=== PATIENT | female | born 1970 | race Caucasian/White ===

== ENCOUNTER 2016-11-28 16:40 | Inpatient (IN) | payer SELFPAY ==
[~2016-11-28] VITALS: Ht 162.6 cm; Wt 72.3 kg
[2016-11-28] MEDS ORDERED: DIPHTH,PERTUSS(ACELL),TET TOX 0.5 ML DISP.SYRIN. VAX IM ONE (18:00)
[2016-11-28] MEDS ORDERED: ACETAMINOPHEN 500 MG TABLET PO ONE (18:00)
[2016-11-28] MEDS ORDERED: IV NORMAL SALINE 1000ML BAG 1,000 ML IV ONE (18:00)
[2016-11-28] MEDS ORDERED: ONDANSETRON PF 4 MG/2 ML VIAL. IV ONE (18:00)
--- NOTE | 2016-11-28 18:04 | PHYS DOC ---
Past Medical History Past Medical History: Depression, Other Additional Past Medical Histor: chronic back pain and neck pain Past Surgical History: Hysterectomy, Other Additional Past Surgical Histo: breast augmentaion, d&c Additional Information: smoke pot used the past 2 days Alcohol Use: Occasionally Drug Use: Marijuana, Other Social History Narrative: pt states she has taken some friends adderrall, and ativan Adult General Chief Complaint Chief Complaint: SYNCOPE HPI HPI 46-year-old female presents with a syncopal episode that she states occurred while she was bending over to tie her shoes. She states in the evening last night she had some nausea and vomiting and has had little to eat or drink today. She admits that she took an Ativan and Adderall today that she is not normally prescribed for her symptoms. She also states she has history of marijuana use but denies any marijuana use today. She denies any significant shortness breath or chest pain. She denies any abdominal pain. She complains of a moderate headache and does have a small laceration to her forehead and is unsure if she lost consciousness with her fall. Review of Systems Review of Systems Constitutional: Denies fever or chills [] Eyes: Denies change in visual acuity, redness, or eye pain [] HENT: Denies nasal congestion or sore throat [] Respiratory: Denies cough or shortness of breath [] Cardiovascular: No additional information not addressed in HPI [] GI: Denies abdominal pain, has nausea, has vomiting, denies bloody stools or diarrhea [] : Denies dysuria or hematuria [] Musculoskeletal: Denies back pain or joint pain [] Integument: Denies rash or skin lesions [] Neurologic: Has headache, denies focal weakness or sensory changes [] Endocrine: Denies polyuria or polydipsia [] Current Medications Current Medications Current Medications Medications (Trade) Dose Ordered Sig/[facility] Start Time Stop Time Status Last Admin Dose Admin Acetaminophen (Tylenol) 1,000 mg 1X ONCE 11/28/16 18:00 11/28/16 18:01 DC 11/28/16 18:00 1,000 MG Diphtheria/ Tetanus/Acell Pertussis (Boostrix) 0.5 ml ONCE ONCE 11/28/16 18:00 11/28/16 18:01 DC 11/28/16 18:03 0.5 ML Ondansetron HCl (Zofran) 4 mg 1X ONCE 11/28/16 18:00 11/28/16 18:01 DC 11/28/16 17:59 4 MG Sodium Chloride (Iv Sodium Chloride 0.9% 1000ml Bag) 1,000 ml @ 1,000 mls/hr 1X ONCE 11/28/16 18:00 11/28/16 19:00 DC 11/28/16 17:57 1,000 MLS/HR Allergies Allergies Allergies Coded Allergies Type Severity Reaction Last Updated Verified naproxen Allergy Severe anaphylactic 11/28/16 Yes codeine Allergy Intermediate hives 11/28/16 Yes Physical Exam Physical Exam Constitutional: Well developed, well nourished, no acute distress, non-toxic appearance. [] HENT: Normocephalic, very tiny laceration to the right forehead with mild swelling and hematoma underlying it, bilateral external ears normal, oropharynx moist, no oral exudates, nose normal. [] Eyes: PERRLA, EOMI, conjunctiva normal, no discharge. [] Neck: Normal range of motion, no tenderness, supple, no stridor. [] Cardiovascular:Heart rate regular rhythm, no murmur [] Lungs & Thorax: Bilateral breath sounds clear to auscultation [] Abdomen: Bowel sounds normal, soft, no tenderness, no masses, no pulsatile masses. [] Skin: Warm, dry, no erythema, no rash. [] Back: No tenderness, no CVA tenderness. [] Extremities: No tenderness, no cyanosis, no clubbing, ROM intact, no edema. [] Neurologic: Alert and oriented X 3, normal motor function, normal sensory function, no focal deficits noted. [] Psychologic: Affect normal, judgement normal, mood normal. [] Current Patient Data Vital Signs Vital Signs Date Time Temp Pulse Resp B/P Pulse Ox O2 Delivery O2 Flow Rate FiO2 11/28/16 18:58 66 20 99/55 98 Room Air 11/28/16 16:40 97.8 97.8 Lab Values Laboratory Tests Test 11/28/16 18:06 11/28/16 18:15 11/28/16 18:19 Urine Collection Type Unknown Urine Color Yellow Urine Clarity Hazy Urine pH 6.0 Urine Specific [place] >=1.030 Urine Protein Negativemg/dL (NEG-TRACE) Urine Glucose (UA) Negativemg/dL (NEG) Urine Ketones (Stick) Negativemg/dL (NEG) Urine Blood Negative (NEG) Urine Nitrite Negative (NEG) Urine Bilirubin Small (NEG) Urine Urobilinogen Dipstick 1.0mg/dL (0.2 mg/dL) Urine Leukocyte Esterase Small (NEG) Urine RBC 0/HPF (0-2) Urine WBC 5-10/HPF (0-4) Urine Squamous Epithelial Cells Mod/LPF Urine Bacteria Few/HPF (0-FEW) Urine Mucus Marked/LPF Urine Opiates Screen Neg (NEG) Urine Methadone Screen Neg (NEG) Urine Barbiturates Neg (NEG) Urine Phencyclidine Screen Neg (NEG) Urine Amphetamine/Methamphetamine Pos (NEG) Urine Benzodiazepines Screen Neg (NEG) Urine Cocaine Screen Neg (NEG) Urine Cannabinoids Screen Pos (NEG) Urine Ethyl Alcohol Neg (NEG) White Blood Count 7.8x10^3/uL (4.0-11.0) Red Blood Count 4.30x10^6/uL (3.50-5.40) Hemoglobin 13.3g/dL (12.0-15.5) Hematocrit 40.0% (36.0-47.0) Mean Corpuscular Volume 93fL (79-100) Mean Corpuscular Hemoglobin 31pg (25-35) Mean Corpuscular Hemoglobin Concent 33g/dL (31-37) Red Cell Distribution Width 12.7% (11.5-14.5) Platelet Count 283x10^3/uL (140-400) Neutrophils (%) (Auto) 79% (31-73) H Lymphocytes (%) (Auto) 10% (24-48) L Monocytes (%) (Auto) 9% (0-9) Eosinophils (%) (Auto) 2% (0-3) Basophils (%) (Auto) 0% (0-3) Neutrophils # (Auto) 6.1x10^3uL (1.8-7.7) Lymphocytes # (Auto) 0.8x10^3/uL (1.0-4.8) L Monocytes # (Auto) 0.7x10^3/uL (0.0-1.1) Eosinophils # (Auto) 0.2x10^3/uL (0.0-0.7) Basophils # (Auto) 0.0x10^3/uL (0.0-0.2) Sodium Level 143mmol/L (136-145) Potassium Level 3.4mmol/L (3.5-5.1) L Chloride Level 104mmol/L (98-107) Carbon Dioxide Level 29mmol/L (21-32) Anion Gap 10 (6-14) Blood Urea Nitrogen 10mg/dL (7-20) Creatinine 0.8mg/dL (0.6-1.0) Estimated GFR (Cockcroft-Gault) 77.9 Glucose Level 101mg/dL (70-99) H Calcium Level 8.7mg/dL (8.5-10.1) POC Urine HCG, Qualitative Hcg negative (Negative) Laboratory Tests 11/28/16 18:15 Laboratory Tests 11/28/16 18:15 EKG EKG EKG as interpreted by me shows a sinus rhythm with a rate of 73 bpm. There are no acute findings on this EKG. Radiology/Procedures Radiology/Procedures CT of the head without contrast demonstrates the following: There is an 8 millimeter focus of hyperdensity within the central aspect closer bone consistent with a small intraparenchymal hemorrhage which may be seen with a contusion. No other hyperdense intracranial hemorrhage is seen. No other focal hypodense area or sulci effacement is seen to indicate an acute infarct . No midline shift or mass-effect or hydrocephalus or extra-axial fluid collection is seen. There is soft tissue edema with laceration injury of the left frontal area. No skull fracture or pneumocephalus is seen. No opacification of the mastoid sinuses or the paranasal sinuses is seen. The maxillary sinuses are not completely seen in this study. Course & Med Decision Making Course & Med Decision Making Pertinent Labs and Imaging studies reviewed. (See chart for details) This 46-year-old female who had a syncopal episode prior to arrival in which she did hit her head and has a very tiny laceration to her forehead will obtain IV and lab work. I will administer an IV fluid bolus and check routine labs. I will also obtain a head CT to rule out any acute brain injury. Her EKG at this time does not demonstrate any acute abnormalities. Her laboratory workup was essentially negative other than a urine toxicology screen that was positive for amphetamines and cannabis. CT of her head without contrast demonstrated concerning findings for cerebellar contusion and possible small interparenchymal hemorrhage. Because of these findings I will be admitting her overnight to the hospital. I discussed the need for admission with the hospitalist, Dr. Arora, who agreed to accept the patient for admission with continued IV fluid hydration. Patient received an IV fluid bolus, Boostrix , a dose of Tylenol and also IV Zofran. Dragon Disclaimer Dragon Disclaimer This electronic medical record was generated, in whole or in part, using a voice recognition dictation system. Departure Departure Impression: Primary Impression: Syncope Additional Impression: Cerebellar contusion Admitting Physician: Huang Arora Condition: STABLE Problem Qualifiers ZAYDA LANDA DO Nov 28, 2016 18:04
[2016-11-28 18:19] LABS: BASO % 0 % (0-3); EOS % 2 % (0-3); HEMOGLOBIN 13.3 g/dL (12.0-15.5); LYMPH # 0.8 x10^3/uL (1.0-4.8); LYMPH % 10 % (24-48); MEAN CORPUSCULAR HEMOGLOBIN 31 pg (25-35); MEAN CORPUSCULAR HGB CONC 33 g/dL (31-37); MEAN CORPUSCULAR VOLUME 93 fL (79-100); MONO % 9 % (0-9); NEUT % 79 % (31-73); PLATELET COUNT 283 x10^3/uL (140-400); RED CELL DISTRIBUTION WIDTH 12.7 % (11.5-14.5); WHITE BLOOD COUNT 7.8 x10^3/uL (4.0-11.0)
[2016-11-28 18:26] LABS: CALCIUM 8.7 mg/dL (8.5-10.1); CREATININE 0.8 mg/dL (0.6-1.0); GFR 77.9; POTASSIUM 3.4 mmol/L (3.5-5.1)
--- NOTE | 2016-11-28 18:37 | RAD ---
PROCEDURE Head CT without HISTORY Fell yesterday and today. Hit her forehead. Headache with nausea. TECHNIQUE Noncontrast axial cross sectional CT scanning of the head was performed. One or more of the following individualized dose reduction techniques were utilized for this study: 1. Automated exposure control 2. Adjustment of the mA and/or kV according to patient size 3. Use of iterative reconstruction technique COMPARISON None available. FINDINGS There is an 8 millimeter focus of hyperdensity within the central aspect closer bone consistent with a small intraparenchymal hemorrhage which may be seen with a contusion. No other hyperdense intracranial hemorrhage is seen. No other focal hypodense area or sulci effacement is seen to indicate an acute infarct . No midline shift or mass-effect or hydrocephalus or extra-axial fluid collection is seen. There is soft tissue edema with laceration injury of the left frontal area. No skull fracture or pneumocephalus is seen. No opacification of the mastoid sinuses or the paranasal sinuses is seen. The maxillary sinuses are not completely seen in this study. IMPRESSION Small contusion of the left cerebellum. This may represent a contrecoup lesion given the left frontal soft tissue laceration and soft tissue edema. Electronically signed by: David Arzate MD (Nov 28, 2016 18:36:32)
[2016-11-28 19:16] LABS: BARBITURATES NEG (NEG); BENZODIAZEPINES NEG (NEG); CANNABINOIDS POS (NEG); COCAINE NEG (NEG); METHADONE NEG (NEG); OPIATES NEG (NEG); PHENCYCLIDINE NEG (NEG)
[2016-11-28 19:19] LABS: ETHANOL, URINE NEG (NEG)
[2016-11-28] MEDS ORDERED: FENTANYL PF 100 MCG/2 ML VIAL. IV PRN (19:30)
[2016-11-28] MEDS ORDERED: ONDANSETRON PF 4 MG/2 ML VIAL. IV PRN (19:30)
[2016-11-28] MEDS ORDERED: ACETAMINOPHEN 325 MG TABLET. PO PRN (19:45)
[2016-11-28] MEDS ORDERED: POTASSIUM CHLORIDE 20 MEQ TABLET.ER. PO ONE (19:45)
--- NOTE | 2016-11-28 19:50 | PDOC1 ---
History and Physical Date of Admission Date of Admission 11/28/16 Identification/Chief Complaint Chief Complaint syncope Problems: Source Source: Chart review, Patient History of Present Illness History of Present Illness HPI HPI 46-year-old female presents with a syncopal episode today. She woke up last night, tiana to bathroom, and fell on the floor, then felt lightheaded, vomited. Today, she still felt light headed, smoked marijuana, still nausea, syncoped besides her car, hit her forhead, called EMS. She also took ativan and Adderall from her friend today to "cool down". + amph and marijuana in urine drug test. + diarrhea 2 times. denies fever, chills, cough, sob. CT showed small cerebellum contusion, forehead has a small skin laceration. Past Medical History Past Medical History none Past Surgical History Past Surgical History: Hysterectomy Family History Family History: No Significant Social History Smoke: No ALCOHOL: social Drugs: Marijuana Current Problem List Problem List Problems Medical Problems: (1) Cerebellar contusion Status: Acute (2) Syncope Status: Acute Current Medications Current Medications Current Medications Medications (Trade) Dose Ordered Sig/[facility] Start Time Stop Time Status Last Admin Dose Admin Acetaminophen (Tylenol) 1,000 mg 1X ONCE 11/28/16 18:00 11/28/16 18:01 DC 11/28/16 18:00 1,000 MG Diphtheria/ Tetanus/Acell Pertussis (Boostrix) 0.5 ml ONCE ONCE 11/28/16 18:00 11/28/16 18:01 DC 11/28/16 18:03 0.5 ML Fentanyl Citrate (Fentanyl 2ml Vial) 50 mcg PRN Q2HR PRN 11/28/16 19:30 11/29/16 19:29 Ondansetron HCl (Zofran) 4 mg PRN Q8HRS PRN 11/28/16 19:30 11/29/16 19:29 Sodium Chloride (Iv Sodium Chloride 0.9% 1000ml Bag) 1,000 ml @ 1,000 mls/hr 1X ONCE 11/28/16 18:00 11/28/16 19:00 DC 11/28/16 17:57 1,000 MLS/HR Allergies Allergies Allergies Coded Allergies Type Severity Reaction Last Updated Verified naproxen Allergy Severe anaphylactic 11/28/16 Yes codeine Allergy Intermediate hives 11/28/16 Yes ROS Review of System CONSTITUTIONAL: No fever or chills EYES: No recent changes SKIN: No rash or itching CARDIOVASCULAR: No chest pain, syncope, palpitations, or edema RESPIRATORY: No SOB or cough GASTROINTESTINAL: No nausea, vomiting or abdominal pain NEUROLOGICAL: No headaches or weakness ENDOCRINE: No cold or heat intolerance GENITOURINARY: No urgency or frequency of urination MUSCULOSKELETAL: No back pain or joint pain LYMPHATICS: No enlarged lymph nodes PSYCHIATRIC: No anxiety or depression Physical Exam Physical Exam GEN.: No apparent distress. Alert and oriented. HEENT: Head is normocephalic, atraumatic NECK: Supple. LUNGS: Clear to auscultation. HEART: RRR, S1, S2 present. Peripheral pulses intact ABDOMEN: Soft, nontender. Positive bowel sounds. EXTREMITIES: Without any cyanosis. NEUROLOGIC: Normal speech, normal tone PSYCHIATRIC: Normal affect, normal mood. SKIN: forehead has a small laceration Vitals Vitals Vital Signs Date Time Temp Pulse Resp B/P Pulse Ox O2 Delivery O2 Flow Rate FiO2 11/28/16 18:58 66 20 99/55 98 Room Air 11/28/16 16:40 97.8 97.8 Labs Labs Laboratory Tests Test 11/28/16 18:06 11/28/16 18:15 11/28/16 18:19 Urine Opiates Screen Neg (NEG) Urine Methadone Screen Neg (NEG) Urine Barbiturates Neg (NEG) Urine Phencyclidine Screen Neg (NEG) Urine Amphetamine/Methamphetamine Pos (NEG) Urine Benzodiazepines Screen Neg (NEG) Urine Cocaine Screen Neg (NEG) Urine Cannabinoids Screen Pos (NEG) Urine Ethyl Alcohol Neg (NEG) White Blood Count 7.8x10^3/uL (4.0-11.0) Red Blood Count 4.30x10^6/uL (3.50-5.40) Hemoglobin 13.3g/dL (12.0-15.5) Hematocrit 40.0% (36.0-47.0) Mean Corpuscular Volume 93fL (79-100) Mean Corpuscular Hemoglobin 31pg (25-35) Mean Corpuscular Hemoglobin Concent 33g/dL (31-37) Red Cell Distribution Width 12.7% (11.5-14.5) Platelet Count 283x10^3/uL (140-400) Neutrophils (%) (Auto) 79% (31-73) Lymphocytes (%) (Auto) 10% (24-48) Monocytes (%) (Auto) 9% (0-9) Eosinophils (%) (Auto) 2% (0-3) Basophils (%) (Auto) 0% (0-3) Neutrophils # (Auto) 6.1x10^3uL (1.8-7.7) Lymphocytes # (Auto) 0.8x10^3/uL (1.0-4.8) Monocytes # (Auto) 0.7x10^3/uL (0.0-1.1) Eosinophils # (Auto) 0.2x10^3/uL (0.0-0.7) Basophils # (Auto) 0.0x10^3/uL (0.0-0.2) Sodium Level 143mmol/L (136-145) Potassium Level 3.4mmol/L (3.5-5.1) Chloride Level 104mmol/L (98-107) Carbon Dioxide Level 29mmol/L (21-32) Anion Gap 10 (6-14) Blood Urea Nitrogen 10mg/dL (7-20) Creatinine 0.8mg/dL (0.6-1.0) Estimated GFR (Cockcroft-Gault) 77.9 Glucose Level 101mg/dL (70-99) Calcium Level 8.7mg/dL (8.5-10.1) Bedside Urine HCG, Qualitative Hcg negative (Negative) Laboratory Tests Test 11/28/16 18:06 11/28/16 18:15 11/28/16 18:19 Urine Opiates Screen Neg (NEG) Urine Methadone Screen Neg (NEG) Urine Barbiturates Neg (NEG) Urine Phencyclidine Screen Neg (NEG) Urine Amphetamine/Methamphetamine Pos (NEG) Urine Benzodiazepines Screen Neg (NEG) Urine Cocaine Screen Neg (NEG) Urine Cannabinoids Screen Pos (NEG) Urine Ethyl Alcohol Neg (NEG) White Blood Count 7.8x10^3/uL (4.0-11.0) Red Blood Count 4.30x10^6/uL (3.50-5.40) Hemoglobin 13.3g/dL (12.0-15.5) Hematocrit 40.0% (36.0-47.0) Mean Corpuscular Volume 93fL (79-100) Mean Corpuscular Hemoglobin 31pg (25-35) Mean Corpuscular Hemoglobin Concent 33g/dL (31-37) Red Cell Distribution Width 12.7% (11.5-14.5) Platelet Count 283x10^3/uL (140-400) Neutrophils (%) (Auto) 79% (31-73) Lymphocytes (%) (Auto) 10% (24-48) Monocytes (%) (Auto) 9% (0-9) Eosinophils (%) (Auto) 2% (0-3) Basophils (%) (Auto) 0% (0-3) Neutrophils # (Auto) 6.1x10^3uL (1.8-7.7) Lymphocytes # (Auto) 0.8x10^3/uL (1.0-4.8) Monocytes # (Auto) 0.7x10^3/uL (0.0-1.1) Eosinophils # (Auto) 0.2x10^3/uL (0.0-0.7) Basophils # (Auto) 0.0x10^3/uL (0.0-0.2) Sodium Level 143mmol/L (136-145) Potassium Level 3.4mmol/L (3.5-5.1) Chloride Level 104mmol/L (98-107) Carbon Dioxide Level 29mmol/L (21-32) Anion Gap 10 (6-14) Blood Urea Nitrogen 10mg/dL (7-20) Creatinine 0.8mg/dL (0.6-1.0) Estimated GFR (Cockcroft-Gault) 77.9 Glucose Level 101mg/dL (70-99) Calcium Level 8.7mg/dL (8.5-10.1) Bedside Urine HCG, Qualitative Hcg negative (Negative) VTE Prophylaxis Ordered VTE Prophylaxis Devices: Yes VTE Pharmacological Prophylaxi: No Assessment/Plan Assessment/Plan 1. syncope, likely 2/2 dehydration , plus drugs 2. small cerebellum contusion from fall with syncope 3. forehead skin small laceration from fall 4. depression 5. chronic back pain 6. drug abuse with marijuana, amphtamine 7. hypokalemia 8. N/V, diarrhea, 2/2 gastroenteritis likely 9. headache from fall 10. chronic interstitial cystitis plan: 1. supportive care 2. replete K 3. neurosx consult, likely no intervention 4. pain control 5. local wound care 6. labs tmr check dulce dunaway tmr PEPE FLOWERS MD Nov 28, 2016 19:50
[2016-11-28] MEDS: HYDROCODONE/APAP 5/325MG TABLET. PO PRN (20:08)
[2016-11-28 20:11] LABS: BACTERIA,URINE FEW /HPF (0-FEW); BILIRUBIN,URINE SMALL (NEG); GLUCOSE,URINE NEGATIVE (NEG); NITRITE,URINE NEGATIVE (NEG); PROTEIN,URINE NEGATIVE (NEG-TRACE); RBC,URINE 0 /HPF (0-2); SQUAMOUS EPITHELIAL CELL,UR MOD /LPF
[2016-11-28 20:55] VITALS: BP 98/60
--- NOTE | 2016-11-28 23:04 | ACF ---
Admission Forms Criteria SYNCOPE Clinical Indications for Admission to Inpatient Care ( Place 'X' for any and all applicable criteria): Admission is indicated for syncope and ANY ONE of the following (1)(2)(3)(4)(5) (6)(7) : [ ]I. Inpatient admission required rather than observation care (Also use Syncope: Observation Care Criteria as appropriate) because of ANY ONE of the following: [ ]a) Hemodynamic instability that is severe or persistent [ ]b) Cardiac arrhythmias of immediate concern identified or strongly suspected (eg, needs electrophysiologic study) [ ]c) Acute coronary syndrome identified (Also use Myocardial Infarction or Angina Criteria form ) [ ]d) Structural cardiac disorder (eg, aortic stenosis) suspected as cause that requires immediate correction [ ]e) Respiratory symptoms (eg, dyspnea, tachypnea) that are severe or persistent [ ]f) Neurologic signs or symptoms that are severe or persistent ( eg, stroke, seizures, altered mental status) [ ]g) Severe electrolyte abnormalities requiring inpatient care [ ]h) Supplemental oxygen or respiratory treatment for over 24 hrs that are performable only in acute inpatient setting [ ]i) IV fluid to replace significant ongoing (eg, for over 24 hrs ) losses (>3 L/m2 per day) [ ]j) Continuous intravenous infusion of anticoagulation, platelet inhibitor, vasoactive, or antiarrhythmic medication(15)(16) [ ]k) Pulmonary artery catheter monitoring [ ]l) Temporary pacemaker placement(17) [ ]m) Emergent cardioversion(18) [ ]n) Other conditions, treatment or monitoring requiring inpatient admission [ ]II. Suspicion of imminently dangerous cause (eg, rare causes like pericardial tamponade, pulmonary embolism) [X]III. Syncope causing severe injury requiring hospitalization Extended stay beyond goal length of stay may be needed for(28) [ ]a) Dangerous arrhythmia(15)(23)(27)(29) [ ]b) Myocardial ischemia [ ]c) Seizure disorder [ ]d) Syncope-related injuries The original [employer] content created by [employer] has been revised. The portions of the content which have been revised are identified through the use of italic text or in bold, and [facility] has neither reviewed nor approved the modified material. All other unmodified content is copyright [email or web address]. Please see references footnoted in the original [facility] 2016 Admission Criteria Met?: Yes ELLA BLANCO Nov 28, 2016 23:04
[2016-11-28 23:24] VITALS: BP 87/42
[2016-11-29 03:00] VITALS: BP 91/59
[2016-11-29] MEDS: HYDROCODONE/APAP 5/325MG TABLET. PO PRN ×3 (03:25→19:32)
[2016-11-29 06:48] LABS: BASO % 1 % (0-3); EOS % 9 % (0-3); HEMATOCRIT 33.9 % (36.0-47.0); HEMOGLOBIN 11.5 g/dL (12.0-15.5); LYMPH # 1.3 x10^3/uL (1.0-4.8); LYMPH % 30 % (24-48); MEAN CORPUSCULAR HEMOGLOBIN 31 pg (25-35); MEAN CORPUSCULAR HGB CONC 34 g/dL (31-37); MEAN CORPUSCULAR VOLUME 92 fL (79-100); MONO % 13 % (0-9); NEUT % 48 % (31-73); PLATELET COUNT 250 x10^3/uL (140-400); RED CELL DISTRIBUTION WIDTH 12.7 % (11.5-14.5); WHITE BLOOD COUNT 4.3 x10^3/uL (4.0-11.0)
[2016-11-29 07:02] LABS: CALCIUM 8.1 mg/dL (8.5-10.1); CREATININE 0.7 mg/dL (0.6-1.0); GFR 90.9
[2016-11-29 07:05] VITALS: BP 138/59
--- NOTE | 2016-11-29 08:30 | EKG ---
[facility] [address] [place] [address] Test Date: 2016-11-28 Test Time: 17:42:54 Pat Name: HARMONY RUSSO Department: Room: [facility] Gender: F Survival Specialist: : 1970 Requested By: ZAYDA LANDA Order Number: [id number] Reading MD: Levi Humphrey Measurements Intervals [place] Rate: 73 P: 55 MI: 140 QRS: 15 QRSD: 74 T: 46 QT: 384 QTc: 427 Interpretive Statements SINUS RHYTHM NO SPECIFIC ECG ABNORMALITIES RI6.01 No previous ECG available for comparison Electronically Signed On 12-14-2016 14:37:58 ORTHOTIST/PROSTHETIST by Levi Humphrey
[2016-11-29] MEDS: ONDANSETRON PF 4 MG/2 ML VIAL. IV PRN ×2 (10:08→19:33)
[2016-11-29 11:00] VITALS: BP 100/52
--- NOTE | 2016-11-29 12:06 | RAD ---
INDICATION: follow-up cerebellar contusion COMPARISON: 11/28/2016 TECHNIQUE: Axial CT images obtained through the head without intravenous contrast. FINDINGS: Repeat demonstration of subcentimeter hyperdensity left cerebellum. No midline shift. Basal cisterns patents. Ventricles and sulci are unremarkable. No acute osseous abnormality. Orbits and paranasal sinuses partially seen and unremarkable. IMPRESSION: 1. No major change in hyperdense focus within the left side of the cerebellum. Given the patient's trauma again it is possible that this is secondary to a small hemorrhagic contusion although other causes such as calcification within the region is also possible given the lack of remote prior. 2. Repeat demonstration of left frontal scalp cephalohematoma. PQRS Compliance Statement: One or more of the following individualized dose reduction techniques were utilized for this examination: 1. Automated exposure control 2. Adjustment of the mA and/or kV according to patient size 3. Use of iterative reconstruction technique
--- NOTE | 2016-11-29 13:02 | PDOC ---
SUBJECTIVE Subjective Pt seen and examined. Full consult dictated. 46F s/p syncopal episode, hitting her forehead on car. Reports intermittent diffuse headache. Small left cerebellar hyperdensity on CT which may be small contusion given history. Repeat CT head stable today without other acute findings and stable small hyperdensity left cerebellum. Neurologically intact on exam. No further cranial imaging recommended unless changes occur. May follow-up as needed. No other neurosurgical intervention recommended at the present time. Any additional syncopal workup at discretion of primary team. Call with any questions. OBJECTIVE Vital Signs Vital Signs Date Time Temp Pulse Resp B/P Pulse Ox O2 Delivery O2 Flow Rate FiO2 11/29/16 11:00 97.9 66 16 100/52 100 Room Air 97.9 11/29/16 10:08 Room Air 11/29/16 08:00 Room Air 11/29/16 07:05 97.5 66 16 138/59 96 Room Air 97.5 11/29/16 03:00 97.7 64 18 91/59 99 Room Air 97.7 11/28/16 23:24 97.9 80 18 87/42 99 Room Air 97.9 11/28/16 22:47 Room Air 11/28/16 20:55 97.7 59 18 98/60 100 Room Air 97.7 11/28/16 20:00 72 106/75 98 11/28/16 19:30 66 20 104/66 98 Room Air 11/28/16 18:58 66 20 99/55 98 Room Air 11/28/16 18:32 72 100/55 97 Room Air 11/28/16 17:35 76 21 130/77 98 Room Air 11/28/16 17:28 80 25 103/69 99 Room Air 11/28/16 16:40 97.8 73 18 117/70 99 Room Air 97.8 I & O Intake and Output 11/29/16 07:00 Intake Total 120 ml Balance 120 ml Intake Oral 120 ml # Voids 2 # Bowel Movements 1 COMMENT Lab Laboratory Tests Test 11/28/16 18:06 11/28/16 18:15 11/28/16 18:19 11/29/16 05:45 Urine Collection Type Unknown Urine Color Yellow Urine Clarity Hazy Urine pH 6.0 Urine Specific [place] >=1.030 Urine Protein Negativemg/dL (NEG-TRACE) Urine Glucose (UA) Negativemg/dL (NEG) Urine Ketones (Stick) Negativemg/dL (NEG) Urine Blood Negative (NEG) Urine Nitrite Negative (NEG) Urine Bilirubin Small (NEG) Urine Urobilinogen Dipstick 1.0mg/dL (0.2 mg/dL) Urine Leukocyte Esterase Small (NEG) Urine RBC 0/HPF (0-2) Urine WBC 5-10/HPF (0-4) Urine Squamous Epithelial Cells Mod/LPF Urine Bacteria Few/HPF (0-FEW) Urine Mucus Marked/LPF Urine Opiates Screen Neg (NEG) Urine Methadone Screen Neg (NEG) Urine Barbiturates Neg (NEG) Urine Phencyclidine Screen Neg (NEG) Urine Amphetamine/Methamphetamine Pos (NEG) Urine Benzodiazepines Screen Neg (NEG) Urine Cocaine Screen Neg (NEG) Urine Cannabinoids Screen Pos (NEG) Urine Ethyl Alcohol Neg (NEG) White Blood Count 7.8x10^3/uL (4.0-11.0) 4.3x10^3/uL (4.0-11.0) Red Blood Count 4.30x10^6/uL (3.50-5.40) 3.70x10^6/uL (3.50-5.40) Hemoglobin 13.3g/dL (12.0-15.5) 11.5g/dL (12.0-15.5) Hematocrit 40.0% (36.0-47.0) 33.9% (36.0-47.0) Mean Corpuscular Volume 93fL (79-100) 92fL (79-100) Mean Corpuscular Hemoglobin 31pg (25-35) 31pg (25-35) Mean Corpuscular Hemoglobin Concent 33g/dL (31-37) 34g/dL (31-37) Red Cell Distribution Width 12.7% (11.5-14.5) 12.7% (11.5-14.5) Platelet Count 283x10^3/uL (140-400) 250x10^3/uL (140-400) Neutrophils (%) (Auto) 79% (31-73) 48% (31-73) Lymphocytes (%) (Auto) 10% (24-48) 30% (24-48) Monocytes (%) (Auto) 9% (0-9) 13% (0-9) Eosinophils (%) (Auto) 2% (0-3) 9% (0-3) Basophils (%) (Auto) 0% (0-3) 1% (0-3) Neutrophils # (Auto) 6.1x10^3uL (1.8-7.7) 2.1x10^3uL (1.8-7.7) Lymphocytes # (Auto) 0.8x10^3/uL (1.0-4.8) 1.3x10^3/uL (1.0-4.8) Monocytes # (Auto) 0.7x10^3/uL (0.0-1.1) 0.6x10^3/uL (0.0-1.1) Eosinophils # (Auto) 0.2x10^3/uL (0.0-0.7) 0.4x10^3/uL (0.0-0.7) Basophils # (Auto) 0.0x10^3/uL (0.0-0.2) 0.0x10^3/uL (0.0-0.2) Sodium Level 143mmol/L (136-145) 142mmol/L (136-145) Potassium Level 3.4mmol/L (3.5-5.1) 4.0mmol/L (3.5-5.1) Chloride Level 104mmol/L (98-107) 108mmol/L (98-107) Carbon Dioxide Level 29mmol/L (21-32) 24mmol/L (21-32) Anion Gap 10 (6-14) 10 (6-14) Blood Urea Nitrogen 10mg/dL (7-20) 8mg/dL (7-20) Creatinine 0.8mg/dL (0.6-1.0) 0.7mg/dL (0.6-1.0) Estimated GFR (Cockcroft-Gault) 77.9 90.9 Glucose Level 101mg/dL (70-99) 95mg/dL (70-99) Calcium Level 8.7mg/dL (8.5-10.1) 8.1mg/dL (8.5-10.1) Bedside Urine HCG, Qualitative Hcg negative (Negative) JOSE M SCHWARTZ MD Nov 29, 2016 13:02
[2016-11-29 15:20] VITALS: BP 106/64
[2016-11-29] MEDS ORDERED: IV NORMAL SALINE 1000ML BAG 1,000 ML IV ONE (15:30)
--- NOTE | 2016-11-29 15:44 | PDOC ---
PROGRESS NOTES Chief Complaint Chief Complaint 1. syncope, dehydration , ingestion 2. small cerebellum contusion from fall with syncope 3. forehead skin small laceration from fall 4. depression 5. chronic back pain 6. drug use 7. hypokalemia 8. N/V, diarrhea, 2/2 gastroenteritis likely 9. concussion, 10. chronic interstitial cystitis 11. History of Present Illness History of Present Illness 1. supportive care 2. replete K 3. lidocaine patch for neck pain, increase oxycodone 4. orthostatics Vitals Vitals Vital Signs Date Time Temp Pulse Resp B/P Pulse Ox O2 Delivery O2 Flow Rate FiO2 11/29/16 11:08 20 100 Room Air 11/29/16 11:00 97.9 66 100/52 97.9 Physical Exam Physical Exam forehead contusion and laceration General: Alert, Oriented X3, Cooperative, No acute distress, Other Heart: Regular rate, No murmurs Lungs: Clear Abdomen: Normal bowel sounds, Soft Extremities: No edema Skin: No rashes Labs LABS Laboratory Tests Test 11/28/16 18:06 11/28/16 18:15 11/28/16 18:19 11/29/16 05:45 Urine Collection Type Unknown Urine Color Yellow Urine Clarity Hazy Urine pH 6.0 Urine Specific [place] >=1.030 Urine Protein Negativemg/dL (NEG-TRACE) Urine Glucose (UA) Negativemg/dL (NEG) Urine Ketones (Stick) Negativemg/dL (NEG) Urine Blood Negative (NEG) Urine Nitrite Negative (NEG) Urine Bilirubin Small (NEG) Urine Urobilinogen Dipstick 1.0mg/dL (0.2 mg/dL) Urine Leukocyte Esterase Small (NEG) Urine RBC 0/HPF (0-2) Urine WBC 5-10/HPF (0-4) Urine Squamous Epithelial Cells Mod/LPF Urine Bacteria Few/HPF (0-FEW) Urine Mucus Marked/LPF Urine Opiates Screen Neg (NEG) Urine Methadone Screen Neg (NEG) Urine Barbiturates Neg (NEG) Urine Phencyclidine Screen Neg (NEG) Urine Amphetamine/Methamphetamine Pos (NEG) Urine Benzodiazepines Screen Neg (NEG) Urine Cocaine Screen Neg (NEG) Urine Cannabinoids Screen Pos (NEG) Urine Ethyl Alcohol Neg (NEG) White Blood Count 7.8x10^3/uL (4.0-11.0) 4.3x10^3/uL (4.0-11.0) Red Blood Count 4.30x10^6/uL (3.50-5.40) 3.70x10^6/uL (3.50-5.40) Hemoglobin 13.3g/dL (12.0-15.5) 11.5g/dL (12.0-15.5) Hematocrit 40.0% (36.0-47.0) 33.9% (36.0-47.0) Mean Corpuscular Volume 93fL (79-100) 92fL (79-100) Mean Corpuscular Hemoglobin 31pg (25-35) 31pg (25-35) Mean Corpuscular Hemoglobin Concent 33g/dL (31-37) 34g/dL (31-37) Red Cell Distribution Width 12.7% (11.5-14.5) 12.7% (11.5-14.5) Platelet Count 283x10^3/uL (140-400) 250x10^3/uL (140-400) Neutrophils (%) (Auto) 79% (31-73) 48% (31-73) Lymphocytes (%) (Auto) 10% (24-48) 30% (24-48) Monocytes (%) (Auto) 9% (0-9) 13% (0-9) Eosinophils (%) (Auto) 2% (0-3) 9% (0-3) Basophils (%) (Auto) 0% (0-3) 1% (0-3) Neutrophils # (Auto) 6.1x10^3uL (1.8-7.7) 2.1x10^3uL (1.8-7.7) Lymphocytes # (Auto) 0.8x10^3/uL (1.0-4.8) 1.3x10^3/uL (1.0-4.8) Monocytes # (Auto) 0.7x10^3/uL (0.0-1.1) 0.6x10^3/uL (0.0-1.1) Eosinophils # (Auto) 0.2x10^3/uL (0.0-0.7) 0.4x10^3/uL (0.0-0.7) Basophils # (Auto) 0.0x10^3/uL (0.0-0.2) 0.0x10^3/uL (0.0-0.2) Sodium Level 143mmol/L (136-145) 142mmol/L (136-145) Potassium Level 3.4mmol/L (3.5-5.1) 4.0mmol/L (3.5-5.1) Chloride Level 104mmol/L (98-107) 108mmol/L (98-107) Carbon Dioxide Level 29mmol/L (21-32) 24mmol/L (21-32) Anion Gap 10 (6-14) 10 (6-14) Blood Urea Nitrogen 10mg/dL (7-20) 8mg/dL (7-20) Creatinine 0.8mg/dL (0.6-1.0) 0.7mg/dL (0.6-1.0) Estimated GFR (Cockcroft-Gault) 77.9 90.9 Glucose Level 101mg/dL (70-99) 95mg/dL (70-99) Calcium Level 8.7mg/dL (8.5-10.1) 8.1mg/dL (8.5-10.1) Bedside Urine HCG, Qualitative Hcg negative (Negative) Review of Systems Review of Systems feels weak, lethargic headache pain, neck pain Assessment and Plan Assessmemt and Plan Problems Medical Problems: (1) Cerebellar contusion Status: Acute (2) Syncope Status: Acute Problems: Comment Review of Relevant I have reviewed the following items lamont (where applicable) has been applied. Labs Laboratory Tests Test 11/28/16 18:06 11/28/16 18:15 11/28/16 18:19 11/29/16 05:45 Urine Collection Type Unknown Urine Color Yellow Urine Clarity Hazy Urine pH 6.0 Urine Specific [place] >=1.030 Urine Protein Negativemg/dL (NEG-TRACE) Urine Glucose (UA) Negativemg/dL (NEG) Urine Ketones (Stick) Negativemg/dL (NEG) Urine Blood Negative (NEG) Urine Nitrite Negative (NEG) Urine Bilirubin Small (NEG) Urine Urobilinogen Dipstick 1.0mg/dL (0.2 mg/dL) Urine Leukocyte Esterase Small (NEG) Urine RBC 0/HPF (0-2) Urine WBC 5-10/HPF (0-4) Urine Squamous Epithelial Cells Mod/LPF Urine Bacteria Few/HPF (0-FEW) Urine Mucus Marked/LPF Urine Opiates Screen Neg (NEG) Urine Methadone Screen Neg (NEG) Urine Barbiturates Neg (NEG) Urine Phencyclidine Screen Neg (NEG) Urine Amphetamine/Methamphetamine Pos (NEG) Urine Benzodiazepines Screen Neg (NEG) Urine Cocaine Screen Neg (NEG) Urine Cannabinoids Screen Pos (NEG) Urine Ethyl Alcohol Neg (NEG) White Blood Count 7.8x10^3/uL (4.0-11.0) 4.3x10^3/uL (4.0-11.0) Red Blood Count 4.30x10^6/uL (3.50-5.40) 3.70x10^6/uL (3.50-5.40) Hemoglobin 13.3g/dL (12.0-15.5) 11.5g/dL (12.0-15.5) Hematocrit 40.0% (36.0-47.0) 33.9% (36.0-47.0) Mean Corpuscular Volume 93fL (79-100) 92fL (79-100) Mean Corpuscular Hemoglobin 31pg (25-35) 31pg (25-35) Mean Corpuscular Hemoglobin Concent 33g/dL (31-37) 34g/dL (31-37) Red Cell Distribution Width 12.7% (11.5-14.5) 12.7% (11.5-14.5) Platelet Count 283x10^3/uL (140-400) 250x10^3/uL (140-400) Neutrophils (%) (Auto) 79% (31-73) 48% (31-73) Lymphocytes (%) (Auto) 10% (24-48) 30% (24-48) Monocytes (%) (Auto) 9% (0-9) 13% (0-9) Eosinophils (%) (Auto) 2% (0-3) 9% (0-3) Basophils (%) (Auto) 0% (0-3) 1% (0-3) Neutrophils # (Auto) 6.1x10^3uL (1.8-7.7) 2.1x10^3uL (1.8-7.7) Lymphocytes # (Auto) 0.8x10^3/uL (1.0-4.8) 1.3x10^3/uL (1.0-4.8) Monocytes # (Auto) 0.7x10^3/uL (0.0-1.1) 0.6x10^3/uL (0.0-1.1) Eosinophils # (Auto) 0.2x10^3/uL (0.0-0.7) 0.4x10^3/uL (0.0-0.7) Basophils # (Auto) 0.0x10^3/uL (0.0-0.2) 0.0x10^3/uL (0.0-0.2) Sodium Level 143mmol/L (136-145) 142mmol/L (136-145) Potassium Level 3.4mmol/L (3.5-5.1) 4.0mmol/L (3.5-5.1) Chloride Level 104mmol/L (98-107) 108mmol/L (98-107) Carbon Dioxide Level 29mmol/L (21-32) 24mmol/L (21-32) Anion Gap 10 (6-14) 10 (6-14) Blood Urea Nitrogen 10mg/dL (7-20) 8mg/dL (7-20) Creatinine 0.8mg/dL (0.6-1.0) 0.7mg/dL (0.6-1.0) Estimated GFR (Cockcroft-Gault) 77.9 90.9 Glucose Level 101mg/dL (70-99) 95mg/dL (70-99) Calcium Level 8.7mg/dL (8.5-10.1) 8.1mg/dL (8.5-10.1) Bedside Urine HCG, Qualitative Hcg negative (Negative) Laboratory Tests Test 11/28/16 18:06 11/28/16 18:15 11/28/16 18:19 11/29/16 05:45 Urine Collection Type Unknown Urine Color Yellow Urine Clarity Hazy Urine pH 6.0 Urine Specific [place] >=1.030 Urine Protein Negativemg/dL (NEG-TRACE) Urine Glucose (UA) Negativemg/dL (NEG) Urine Ketones (Stick) Negativemg/dL (NEG) Urine Blood Negative (NEG) Urine Nitrite Negative (NEG) Urine Bilirubin Small (NEG) Urine Urobilinogen Dipstick 1.0mg/dL (0.2 mg/dL) Urine Leukocyte Esterase Small (NEG) Urine RBC 0/HPF (0-2) Urine WBC 5-10/HPF (0-4) Urine Squamous Epithelial Cells Mod/LPF Urine Bacteria Few/HPF (0-FEW) Urine Mucus Marked/LPF Urine Opiates Screen Neg (NEG) Urine Methadone Screen Neg (NEG) Urine Barbiturates Neg (NEG) Urine Phencyclidine Screen Neg (NEG) Urine Amphetamine/Methamphetamine Pos (NEG) Urine Benzodiazepines Screen Neg (NEG) Urine Cocaine Screen Neg (NEG) Urine Cannabinoids Screen Pos (NEG) Urine Ethyl Alcohol Neg (NEG) White Blood Count 7.8x10^3/uL (4.0-11.0) 4.3x10^3/uL (4.0-11.0) Red Blood Count 4.30x10^6/uL (3.50-5.40) 3.70x10^6/uL (3.50-5.40) Hemoglobin 13.3g/dL (12.0-15.5) 11.5g/dL (12.0-15.5) Hematocrit 40.0% (36.0-47.0) 33.9% (36.0-47.0) Mean Corpuscular Volume 93fL (79-100) 92fL (79-100) Mean Corpuscular Hemoglobin 31pg (25-35) 31pg (25-35) Mean Corpuscular Hemoglobin Concent 33g/dL (31-37) 34g/dL (31-37) Red Cell Distribution Width 12.7% (11.5-14.5) 12.7% (11.5-14.5) Platelet Count 283x10^3/uL (140-400) 250x10^3/uL (140-400) Neutrophils (%) (Auto) 79% (31-73) 48% (31-73) Lymphocytes (%) (Auto) 10% (24-48) 30% (24-48) Monocytes (%) (Auto) 9% (0-9) 13% (0-9) Eosinophils (%) (Auto) 2% (0-3) 9% (0-3) Basophils (%) (Auto) 0% (0-3) 1% (0-3) Neutrophils # (Auto) 6.1x10^3uL (1.8-7.7) 2.1x10^3uL (1.8-7.7) Lymphocytes # (Auto) 0.8x10^3/uL (1.0-4.8) 1.3x10^3/uL (1.0-4.8) Monocytes # (Auto) 0.7x10^3/uL (0.0-1.1) 0.6x10^3/uL (0.0-1.1) Eosinophils # (Auto) 0.2x10^3/uL (0.0-0.7) 0.4x10^3/uL (0.0-0.7) Basophils # (Auto) 0.0x10^3/uL (0.0-0.2) 0.0x10^3/uL (0.0-0.2) Sodium Level 143mmol/L (136-145) 142mmol/L (136-145) Potassium Level 3.4mmol/L (3.5-5.1) 4.0mmol/L (3.5-5.1) Chloride Level 104mmol/L (98-107) 108mmol/L (98-107) Carbon Dioxide Level 29mmol/L (21-32) 24mmol/L (21-32) Anion Gap 10 (6-14) 10 (6-14) Blood Urea Nitrogen 10mg/dL (7-20) 8mg/dL (7-20) Creatinine 0.8mg/dL (0.6-1.0) 0.7mg/dL (0.6-1.0) Estimated GFR (Cockcroft-Gault) 77.9 90.9 Glucose Level 101mg/dL (70-99) 95mg/dL (70-99) Calcium Level 8.7mg/dL (8.5-10.1) 8.1mg/dL (8.5-10.1) Bedside Urine HCG, Qualitative Hcg negative (Negative) Microbiology 11/28/16 Urine Culture - Preliminary, Resulted 11/28/16 Urine Culture Result 1 (JOURADN) - Preliminary, Resulted Medications Current Medications Sodium Chloride (Iv Sodium Chloride 0.9% 1000ml Bag) 1,000 ml @ 1,000 mls/hr 1X ONCE IV Last administered on 11/28/16 17:57; Start 11/28/16 at 18:00; Stop 11/28/16 at 19:00; Status DC Ondansetron HCl (Zofran) 4 mg 1X ONCE IV Last administered on 11/28/16 17:59 ; Start 11/28/16 at 18:00; Stop 11/28/16 at 18:01; Status DC Diphtheria/ Tetanus/Acell Pertussis (Boostrix) 0.5 ml ONCE ONCE VAX IM Last administered on 11/28/16 18:03; Start 11/28/16 at 18:00; Stop 11/28/16 at 18:01 ; Status DC Acetaminophen (Tylenol) 1,000 mg 1X ONCE PO Last administered on 11/28/16 18: 00; Start 11/28/16 at 18:00; Stop 11/28/16 at 18:01; Status DC Ondansetron HCl (Zofran) 4 mg PRN Q8HRS PRN IV NAUSEA/VOMITING; Start 11/28/16 at 19:30; Stop 11/29/16 at 19:29 Fentanyl Citrate (Fentanyl 2ml Vial) 50 mcg PRN Q2HR PRN IV PAIN; Start at 19:30; Stop 11/29/16 at 19:29 Acetaminophen (Tylenol) 650 mg PRN Q6HRS PRN PO SEVERE PAIN; Start 11/28/16 at 19:45 Ondansetron HCl (Zofran) 4 mg PRN Q6HRS PRN IV NAUSEA Last administered on 11/29 10:08; Start 11/28/16 at 19:45 Acetaminophen/ Hydrocodone Bitart (Lortab 5/325) 1 tab PRN Q6HRS PRN PO PAIN Last administered on 11/29/16 10:08; Start 11/28/16 at 19:45 Potassium Chloride (Klor-Con) 40 meq 1X ONCE PO Last administered on 20:09; Start 11/28/16 at 19:45; Stop 11/28/16 at 19:46; Status DC Active Scripts Active Reported No Known Medications Prior To Admisstion (Info) Each 1 Each Vitals/I & O Vital Sign - Last 24 Hours 11/28/16 11/28/16 11/28/16 11/28/16 16:40 17:28 17:35 18:32 Temp 97.8 97.8 Pulse 73 80 76 72 Resp 18 25 21 B/P 117/70 103/69 130/77 100/55 Pulse Ox 99 99 98 97 O2 Delivery Room Air Room Air Room Air Room Air 11/28/16 11/28/16 11/28/16 11/28/16 18:58 19:30 20:00 20:55 Temp 97.7 97.7 Pulse 66 66 72 59 Resp 20 20 18 B/P 99/55 104/66 106/75 98/60 Pulse Ox 98 98 98 100 O2 Delivery Room Air Room Air Room Air 11/28/16 11/28/16 11/29/16 11/29/16 22:47 23:24 03:00 07:05 Temp 97.9 97.7 97.5 97.9 97.7 97.5 Pulse 80 64 66 Resp 18 18 16 B/P 87/42 91/59 138/59 Pulse Ox 99 99 96 O2 Delivery Room Air Room Air Room Air Room Air 11/29/16 11/29/16 11/29/16 11/29/16 08:00 10:08 11:00 11:08 Temp 97.9 97.9 Pulse 66 Resp 16 20 B/P 100/52 Pulse Ox 100 100 O2 Delivery Room Air Room Air Room Air Room Air Intake and Output 11/28/16 11/28/16 11/29/16 14:59 22:59 06:59 Intake Total 120 ml Balance 120 ml TAINA PRASAD MD Nov 29, 2016 15:44
[2016-11-29] MEDS: LIDOCAINE (700MG/PATCH) PATCH. TD SCH (17:13)
[2016-11-29] MEDS: OXYCODONE IR 5 MG TABLET. PO PRN ×2 (17:14→23:49)
[2016-11-29 19:00] VITALS: BP 110/63
[2016-11-29 23:00] VITALS: BP 98/57
[2016-11-30] MEDS: METRONIDAZOLE 500 MG TABLET. PO SCH ×3 (00:40→14:56)
[2016-11-30 03:10] VITALS: BP 108/48
[2016-11-30 03:11] VITALS: BP 122/92
[2016-11-30] MEDS: HYDROCODONE/APAP 5/325MG TABLET. PO PRN ×2 (03:43→12:11)
[2016-11-30] MEDS: ONDANSETRON PF 4 MG/2 ML VIAL. IV PRN (03:43)
[2016-11-30 04:38] VITALS: BP 126/85
[2016-11-30 05:57] LABS: ALBUMIN 2.8 g/dL (3.4-5.0); CALCIUM 7.9 mg/dL (8.5-10.1); CREATININE 0.7 mg/dL (0.6-1.0); GFR 90.9; POTASSIUM 3.8 mmol/L (3.5-5.1); TOTAL BILIRUBIN 0.2 mg/dL (0.2-1.0); TOTAL PROTEIN 5.5 g/dL (6.4-8.2)
[2016-11-30 06:11] LABS: FREE T4 0.94 ng/dL (0.76-1.46)
[2016-11-30] MEDS: OXYCODONE IR 5 MG TABLET. PO PRN ×3 (06:11→14:56)
[2016-11-30 06:12] LABS: BASO % 1 % (0-3); EOS % 7 % (0-3); HEMATOCRIT 31.5 % (36.0-47.0); HEMOGLOBIN 10.8 g/dL (12.0-15.5); LYMPH % 38 % (24-48); MEAN CORPUSCULAR HEMOGLOBIN 32 pg (25-35); MEAN CORPUSCULAR HGB CONC 35 g/dL (31-37); MEAN CORPUSCULAR VOLUME 92 fL (79-100); MONO % 12 % (0-9); NEUT % 42 % (31-73); PLATELET COUNT 230 x10^3/uL (140-400); RED BLOOD COUNT 3.43 x10^6/uL (3.50-5.40); RED CELL DISTRIBUTION WIDTH 12.6 % (11.5-14.5); WHITE BLOOD COUNT 5.2 x10^3/uL (4.0-11.0)
[2016-11-30 07:00] VITALS: BP 104/58
[2016-11-30] MEDS: LIDOCAINE (700MG/PATCH) PATCH. TD SCH (09:47)
[2016-11-30 10:40] VITALS: BP 97/63
--- NOTE | 2016-11-30 12:12 | CONS ---
DATE OF CONSULTATION: 11/29/2016 REASON FOR CONSULTATION: Possible cerebellar contusion status post syncopal event and fall. HISTORY OF PRESENT ILLNESS: The patient is a 46-year-old female who, a couple of months ago, reports that she had lightheadedness and sustained a short syncopal episode in her bathroom. When she came to, she was still lightheaded and reported some emesis. She had a second episode of syncope while she was loading something into her car. She became nauseated and lightheaded and lost consciousness for a brief period of time. She hit her forehead on the car and subsequently EMS was called. She sustained a laceration over the left forehead and near her nose. Reportedly, she had been smoking marijuana closely associated to these events. She had reported that she had an Ativan and an Adderall from a friend to "cool down." She reports intermittent diffuse headache that is more prominent since her fall, but she explains that she has had some intermittent headaches over the last few months. Imaging of the head was obtained showing a small hyperdensity in the left cerebellum which has the appearance of a potential contusion versus calcification. Neurosurgery is consulted for evaluation of this. PAST MEDICAL HISTORY: She reports a history of chronic interstitial cystitis. She reports chronic back pain. 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 She has not had any issues with this for many years. She denies other medical problems. PAST SURGICAL HISTORY: She has had a hysterectomy in the past. She also has had breast augmentation, and multiple dilation and curettage procedures. FAMILY HISTORY: Denies medical problems. SOCIAL HISTORY: She utilizes marijuana and utilizes alcohol socially. Denies use of tobacco. ALLERGIES: Listed to NAPROSYN AND CODEINE. CURRENT MEDICATIONS: Include Lortab, Zofran, Tylenol, and fentanyl. REVIEW OF SYSTEMS: She reports the aforementioned headaches. She denies any visual changes. She denies any chest pain. She has had some nausea and vomiting recently but denies any nausea at this time. She reports the aforementioned headaches. She denies any cold or heat intolerance. 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 She reports chronic low back pain. She denies fevers, chills, or night sweats. She denies any paresthesias, focal weakness, or bowel or bladder changes. She denies any shortness of air or cough. She denies any significant mood changes. A 10-point review of systems is otherwise negative except for the aforementioned. PHYSICAL EXAMINATION: VITAL SIGNS: Her temperature is 97.9 degrees Fahrenheit, pulse 66, respirations 16, blood pressure 100/52, and her O2 sat is 100% on room air. GENERAL: She is awake, alert, and oriented x4. She is in no acute distress. She has a dressing over her left forehead for a laceration. There is a small laceration adjacent to the left nares. NECK: Supple and nontender. LUNGS: Respirations are even and nonlabored. She has equal chest rise. ABDOMEN: Soft. Nontender. EXTREMITIES: She has no cyanosis, clubbing, or edema in the extremities. CARDIOVASCULAR: Her pulse is regular. Peripheral pulses palpable. NEUROLOGIC: Cranial nerves 2 through 12 intact bilaterally. Speech is fluent. She appears to have a fund of knowledge. Her strength is 5 out of 5 in all major muscle groups in her bilateral upper and bilateral lower extremities. Deep tendon reflexes are symmetric. Sensation is intact to light touch. Cerebellar function is intact bilaterally in the upper and lower extremities. RADIOLOGY: There is a noncontrast CT scan of the head obtained yesterday showing a small hyperdensity in the left cerebellum without significant mass effect. There is a forehead swelling consistent with a cephalohematoma. Given the history of trauma, the cerebellar lesion may represent a small contusion. She has received a repeat noncontrast CT scan of the head today showing no significant change in this lesion which may represent a small contusion but could potentially represent a small calcification. ASSESSMENT AND PLAN: This is a 46-year-old female status post syncopal episode with a fall and a traumatic injury to the forehead with a small cerebellar hyperdensity which may be consistent with a small contusion. As she has remained radiographically stable and remains neurologically stable and intact at this time, no surgical intervention is recommended. If she continues to remain neurologically stable, no further imaging is recommended at the present time. According to the documentation from the primary team, it is felt that syncope may be related to drug/medication and dehydration. Neurosurgery will defer further workup of syncopal episodes with the primary team. Of note, there are no specific findings on intracranial exam that would discretely explain syncopal episodes. She may follow up as needed if any problems occur. Neurosurgery is available to answer any questions and provide any additional recommendations as needed. JOSE M SCHWARTZ MD DR: BE/jassi JOB#: [id number] / [id number] KALIA
--- NOTE | 2016-11-30 13:21 | CARD ---
APPROVED REPORT EXAM: Two-dimensional and M-mode echocardiogram with Doppler and color Doppler. Other Information Quality : GoodHR: 56bpm Rhythm : NSR, Bradycardia INDICATION Syncope 2D DIMENSIONS RVDd3.0 (2.9-3.5cm)Left Atrium(2D)3.1 (1.6-4.0cm) IVSd0.8 (0.7-1.1cm)Aortic Root(2D)2.8 (2.0-3.7cm) LVDd4.5 (3.9-5.9cm)PWd0.9 (0.7-1.1cm) LVDs2.3 (2.5-4.0cm)FS (%) 48.9 % SV74.3 mlLVEF(%)80.4 (>50%) Aortic Valve AoV Peak Long.120.3cm/sAoV VTI29.0cm AO Peak GR.5.8mmHgLVOT Peak Long.119.8cm/s LVOT VTI 22.31cmAO Mean GR.3mmHg Mitral Valve MV E Cfulymec464.2cm/sMV DECEL [id number] MV A Ddhdgtnh69.2cm/sMV E Mean Gr.1mmHg MV [id number]/A Ratio1.8 MV A [id number] (PHT)4.42cm2 TDI E/Lateral E'7.4E/Medial E'8.9 Pulmonary Valve PV Peak Txgaaqhf44.2cm/sPV Peak Grad.3mmHg RVOT VTI17.6cm Tricuspid Valve TR P. [id number]/sRAP [id number] TR Peak Gr.78alAaXDNN65xqXx Pulmonary Vein S1 Aoaknvmz68.7cm/sD2 Icxxocph11.7cm/s PVa [id number] LEFT VENTRICLE The left ventricle is normal size. There is normal left ventricular wall thickness. Left ventricle sy stolic function is normal. The Ejection Fraction is 50-55%. There is normal LV segmental wall motion. The left ventricular diastolic function and filling is normal for age. There is no ventricular septa l defect visualized. RIGHT VENTRICLE The right ventricle is normal size. There is normal right ventricular wall thickness. The right ventr icular systolic function is normal. ATRIA The left atrium size is normal. The right atrium size is normal. The interatrial septum is intact wit h no evidence for an atrial septal defect or patent foramen ovale as noted on 2-D or Doppler imaging. AORTIC VALVE The aortic valve is normal in structure and function. The aortic valve is trileaflet. Doppler and Col or Flow revealed no significant aortic regurgitation. There is no significant aortic valvular stenosi s. MITRAL VALVE The mitral valve is normal in structure. There is no evidence of mitral valve prolapse. There is no m itral valve stenosis. Doppler and Color Flow revealed mild mitral regurgitation. TRICUSPID VALVE The tricuspid valve is normal in structure. Doppler and Color Flow revealed mild tricuspid regurgitat ion. There is mild pulmonary hypertension. The PA pressure was estimated at 31 mmHg. There is no tric uspid valve stenosis. PULMONIC VALVE The pulmonary valve is normal in structure. Doppler and Color Flow revealed mild pulmonic valvular re gurgitation. There is no pulmonic valvular stenosis. GREAT VESSELS The aortic root is normal in size. The ascending aorta is normal in size. Normal pulmonary venous agustin w (Doppler). The IVC is normal in size and collapses >50% with inspiration. PERICARDIAL EFFUSION There is no evidence of significant pericardial effusion. Critical Notification Critical Value: No <Conclusion> Left ventricle systolic function is normal. The Ejection Fraction is 50-55%. There is normal LV segmental wall motion. Mild mitral regurgitation. Mild tricuspid regurgitation. There is mild pulmonary hypertension. The PA pressure was estimated at 31 mmHg. There is no evidence of significant pericardial effusion.
[2016-11-30] MEDS ORDERED: METR500T PO (13:41)
--- NOTE | 2016-11-30 13:42 | PDOC3 ---
Discharge Summary Visit Information Date of Admission: Nov 28, 2016 Date of Discharge: Nov 30, 2016 Admitting Diagnosis Comment: 1. syncope, dehydration , ingestion 2. small cerebellum contusion from fall with syncope 3. forehead skin small laceration from fall 4. depression 5. chronic back pain 6. drug use 7. hypokalemia 8. N/V, diarrhea, 2/2 gastroenteritis likely 9. concussion, 10. chronic interstitial cystitis 11. Final Diagnosis Problems Medical Problems: (1) C. difficile diarrhea Status: Acute (2) Cerebellar contusion Status: Acute (3) Syncope Status: Acute Brief Hospital Course Allergies Allergies Coded Allergies Type Severity Reaction Last Updated Verified naproxen Allergy Severe anaphylactic 11/28/16 Yes codeine Allergy Intermediate hives 11/28/16 Yes Vital Signs Vital Signs Date Time Temp Pulse Resp B/P Pulse Ox O2 Delivery O2 Flow Rate FiO2 11/30/16 12:11 14 99 Room Air 11/30/16 10:40 98.1 54 97/63 98.1 Lab Results Laboratory Tests Test 11/28/16 18:06 11/28/16 18:15 11/28/16 18:19 11/29/16 05:45 Urine Collection Type Unknown Urine Color Yellow Urine Clarity Hazy Urine pH 6.0 Urine Specific [place] >=1.030 Urine Protein Negativemg/dL (NEG-TRACE) Urine Glucose (UA) Negativemg/dL (NEG) Urine Ketones (Stick) Negativemg/dL (NEG) Urine Blood Negative (NEG) Urine Nitrite Negative (NEG) Urine Bilirubin Small (NEG) Urine Urobilinogen Dipstick 1.0mg/dL (0.2 mg/dL) Urine Leukocyte Esterase Small (NEG) Urine RBC 0/HPF (0-2) Urine WBC 5-10/HPF (0-4) Urine Squamous Epithelial Cells Mod/LPF Urine Bacteria Few/HPF (0-FEW) Urine Mucus Marked/LPF Urine Opiates Screen Neg (NEG) Urine Methadone Screen Neg (NEG) Urine Barbiturates Neg (NEG) Urine Phencyclidine Screen Neg (NEG) Urine Amphetamine/Methamphetamine Pos (NEG) Urine Benzodiazepines Screen Neg (NEG) Urine Cocaine Screen Neg (NEG) Urine Cannabinoids Screen Pos (NEG) Urine Ethyl Alcohol Neg (NEG) White Blood Count 7.8x10^3/uL (4.0-11.0) 4.3x10^3/uL (4.0-11.0) Red Blood Count 4.30x10^6/uL (3.50-5.40) 3.70x10^6/uL (3.50-5.40) Hemoglobin 13.3g/dL (12.0-15.5) 11.5g/dL (12.0-15.5) Hematocrit 40.0% (36.0-47.0) 33.9% (36.0-47.0) Mean Corpuscular Volume 93fL (79-100) 92fL (79-100) Mean Corpuscular Hemoglobin 31pg (25-35) 31pg (25-35) Mean Corpuscular Hemoglobin Concent 33g/dL (31-37) 34g/dL (31-37) Red Cell Distribution Width 12.7% (11.5-14.5) 12.7% (11.5-14.5) Platelet Count 283x10^3/uL (140-400) 250x10^3/uL (140-400) Neutrophils (%) (Auto) 79% (31-73) 48% (31-73) Lymphocytes (%) (Auto) 10% (24-48) 30% (24-48) Monocytes (%) (Auto) 9% (0-9) 13% (0-9) Eosinophils (%) (Auto) 2% (0-3) 9% (0-3) Basophils (%) (Auto) 0% (0-3) 1% (0-3) Neutrophils # (Auto) 6.1x10^3uL (1.8-7.7) 2.1x10^3uL (1.8-7.7) Lymphocytes # (Auto) 0.8x10^3/uL (1.0-4.8) 1.3x10^3/uL (1.0-4.8) Monocytes # (Auto) 0.7x10^3/uL (0.0-1.1) 0.6x10^3/uL (0.0-1.1) Eosinophils # (Auto) 0.2x10^3/uL (0.0-0.7) 0.4x10^3/uL (0.0-0.7) Basophils # (Auto) 0.0x10^3/uL (0.0-0.2) 0.0x10^3/uL (0.0-0.2) Sodium Level 143mmol/L (136-145) 142mmol/L (136-145) Potassium Level 3.4mmol/L (3.5-5.1) 4.0mmol/L (3.5-5.1) Chloride Level 104mmol/L (98-107) 108mmol/L (98-107) Carbon Dioxide Level 29mmol/L (21-32) 24mmol/L (21-32) Anion Gap 10 (6-14) 10 (6-14) Blood Urea Nitrogen 10mg/dL (7-20) 8mg/dL (7-20) Creatinine 0.8mg/dL (0.6-1.0) 0.7mg/dL (0.6-1.0) Estimated GFR (Cockcroft-Gault) 77.9 90.9 Glucose Level 101mg/dL (70-99) 95mg/dL (70-99) Calcium Level 8.7mg/dL (8.5-10.1) 8.1mg/dL (8.5-10.1) Bedside Urine HCG, Qualitative Hcg negative (Negative) Test 11/29/16 14:30 11/30/16 05:00 Clostridium difficile Toxin (PCR) Positive (Negative) White Blood Count 5.2x10^3/uL (4.0-11.0) Red Blood Count 3.43x10^6/uL (3.50-5.40) Hemoglobin 10.8g/dL (12.0-15.5) Hematocrit 31.5% (36.0-47.0) Mean Corpuscular Volume 92fL (79-100) Mean Corpuscular Hemoglobin 32pg (25-35) Mean Corpuscular Hemoglobin Concent 35g/dL (31-37) Red Cell Distribution Width 12.6% (11.5-14.5) Platelet Count 230x10^3/uL (140-400) Neutrophils (%) (Auto) 42% (31-73) Lymphocytes (%) (Auto) 38% (24-48) Monocytes (%) (Auto) 12% (0-9) Eosinophils (%) (Auto) 7% (0-3) Basophils (%) (Auto) 1% (0-3) Neutrophils # (Auto) 2.2x10^3uL (1.8-7.7) Lymphocytes # (Auto) 2.0x10^3/uL (1.0-4.8) Monocytes # (Auto) 0.6x10^3/uL (0.0-1.1) Eosinophils # (Auto) 0.4x10^3/uL (0.0-0.7) Basophils # (Auto) 0.0x10^3/uL (0.0-0.2) Sodium Level 143mmol/L (136-145) Potassium Level 3.8mmol/L (3.5-5.1) Chloride Level 108mmol/L (98-107) Carbon Dioxide Level 28mmol/L (21-32) Anion Gap 7 (6-14) Blood Urea Nitrogen 6mg/dL (7-20) Creatinine 0.7mg/dL (0.6-1.0) Estimated GFR (Cockcroft-Gault) 90.9 BUN/Creatinine Ratio 9 (6-20) Glucose Level 80mg/dL (70-99) Calcium Level 7.9mg/dL (8.5-10.1) Total Bilirubin 0.2mg/dL (0.2-1.0) Aspartate Amino Transf (AST/SGOT) 16U/L (15-37) Alanine Aminotransferase (ALT/SGPT) 15U/L (14-59) Alkaline Phosphatase 56U/L (46-116) Total Protein 5.5g/dL (6.4-8.2) Albumin 2.8g/dL (3.4-5.0) Albumin/Globulin Ratio 1.0 (1.0-1.7) Thyroid Stimulating Hormone (TSH) 4.420uIU/mL (0.358-3.74) Free Thyroxine 0.94ng/dL (0.76-1.46) Cortisol AM Sample 0.6ug/dL (6.2-19.4) Laboratory Tests Test 11/29/16 14:30 11/30/16 05:00 Clostridium difficile Toxin (PCR) Positive (Negative) White Blood Count 5.2x10^3/uL (4.0-11.0) Red Blood Count 3.43x10^6/uL (3.50-5.40) Hemoglobin 10.8g/dL (12.0-15.5) Hematocrit 31.5% (36.0-47.0) Mean Corpuscular Volume 92fL (79-100) Mean Corpuscular Hemoglobin 32pg (25-35) Mean Corpuscular Hemoglobin Concent 35g/dL (31-37) Red Cell Distribution Width 12.6% (11.5-14.5) Platelet Count 230x10^3/uL (140-400) Neutrophils (%) (Auto) 42% (31-73) Lymphocytes (%) (Auto) 38% (24-48) Monocytes (%) (Auto) 12% (0-9) Eosinophils (%) (Auto) 7% (0-3) Basophils (%) (Auto) 1% (0-3) Neutrophils # (Auto) 2.2x10^3uL (1.8-7.7) Lymphocytes # (Auto) 2.0x10^3/uL (1.0-4.8) Monocytes # (Auto) 0.6x10^3/uL (0.0-1.1) Eosinophils # (Auto) 0.4x10^3/uL (0.0-0.7) Basophils # (Auto) 0.0x10^3/uL (0.0-0.2) Sodium Level 143mmol/L (136-145) Potassium Level 3.8mmol/L (3.5-5.1) Chloride Level 108mmol/L (98-107) Carbon Dioxide Level 28mmol/L (21-32) Anion Gap 7 (6-14) Blood Urea Nitrogen 6mg/dL (7-20) Creatinine 0.7mg/dL (0.6-1.0) Estimated GFR (Cockcroft-Gault) 90.9 BUN/Creatinine Ratio 9 (6-20) Glucose Level 80mg/dL (70-99) Calcium Level 7.9mg/dL (8.5-10.1) Total Bilirubin 0.2mg/dL (0.2-1.0) Aspartate Amino Transf (AST/SGOT) 16U/L (15-37) Alanine Aminotransferase (ALT/SGPT) 15U/L (14-59) Alkaline Phosphatase 56U/L (46-116) Total Protein 5.5g/dL (6.4-8.2) Albumin 2.8g/dL (3.4-5.0) Albumin/Globulin Ratio 1.0 (1.0-1.7) Thyroid Stimulating Hormone (TSH) 4.420uIU/mL (0.358-3.74) Free Thyroxine 0.94ng/dL (0.76-1.46) Cortisol AM Sample 0.6ug/dL (6.2-19.4) Brief Hospital Course Ms. Jules is a 46 old female had a fall, contussion frontal area, C diff diarrhea, first episode, non toxic, no fevers, no white ct, no abd pain, eatimng fine, Being dcd on PO flagyl x 2 weeks Pt seen and examined Counselled > 50% time, 32 mins Consults: neuro sx Proc; none Discharge Information Condition at Discharge: Improved, Stable Disposition/Orders: D/C to Home Miscellaneous Medications Info (No Known Medications Prior To Admisstion) 1 EACH [facility] (Reported) JENNA ZAMORANO MD Nov 30, 2016 13:42
[2016-11-30] MEDS ORDERED: HYDR-2678 PO (14:30)
== END 2016-11-30 15:15 | disposition home or self-care (01) | DRG 371 ==
LOC: ER 16:40 → 6 SOUTH 19:04
PROVIDERS: ADMIT Internal Medicine; ATTEND Internal Medicine
DX: A04.7 Enterocolitis due to Clostridium difficile (principal); S06.370A Contusion, laceration, and hemorrhage of cerebellum without loss of consciousness, initial encounter; S06.0X9A Concussion with loss of consciousness of unspecified duration, initial encounter; S01.81XA Laceration without foreign body of other part of head, initial encounter; E86.0 Dehydration; E87.6 Hypokalemia; F12.10 Cannabis abuse, uncomplicated; F32.9 Major depressive disorder, single episode, unspecified; G89.29 Other chronic pain; W19.XXXA Unspecified fall, initial encounter; N30.10 Interstitial cystitis (chronic) without hematuria; Z90.710 Acquired absence of both cervix and uterus; Z88.6 Allergy status to analgesic agent; Z88.8 Allergy status to other drugs, medicaments and biological substances
CPT/HCPCS: 36415; 70450; 80048; 80053; 81001; 81025; 82533; 84439; 84443; 85027; 87086; 87324; 90715; 93005; 93306; 96361; 96374; G0481; J2405; J7030; 99285-25